=== PATIENT | male | born 1950 | race Caucasian/White ===

== ENCOUNTER 2023-01-30 15:38 | Emergency (ER) | payer MEDICARE, SELFPAY ==
[2023-01-30 15:53] VITALS: BP 132/80; PULSE 76; RESP 16; TEMP 36.6; O2SAT 97
--- NOTE | 2023-01-30 16:27 | ED.URI ---
HPI - URI/Sore Throat General Chief Complaint: Upper Respiratory Infection Stated Complaint: Sinus Pain Time Seen by Provider: 01/30/23 16:27 Source: patient and RN notes reviewed Mode of arrival: ambulatory Limitations: no limitations History of Present Illness HPI Narrative: 72-year-old male presents concern for 2 day history of nasal congestion. He reports runny nose and postnasal drainage. Reports he ?gets this every year?. Reports he was around people who were ill at a on Monday. He denies taking any blea-pqr-zcdubeo medications for his symptoms MD elicited complaint: nasal congestion Related Data Home Medications Medication Instructions Recorded Confirmed duloxetine 30 mg capsule,delayed mg PO 01/30/23 release furosemide 40 mg tablet mg 01/30/23 methocarbamol 500 mg tablet mg 01/30/23 potassium chloride 20 mEq meq PO 01/30/23 tablet,extended release Allergies Allergy/AdvReac Type Severity Reaction Status Date / Time Penicillins Allergy Severe Swelling, Verified 03/27/17 10:21 Rash, SOB Review of Systems Review of Systems: CONSTITUTIONAL: Denies malaise, chills, sweats, or fever. EYES: Denies visual changes, redness, or discharge. ENT: Reports rhinorrhea, congestion denies sinus pain, otalgia and sore throat. CARDIOVASCULAR: Denies chest pain, palpitations, or edema. RESPIRATORY: Reports occasional cough. Denies dyspnea. GASTROINTESTINAL: Denies abdominal pain, nausea, vomiting, diarrhea SKIN: Denies rash or itching. MUSCULOSKELETAL: Denies myalgia. NEUROLOGIC: Denies headache. All systems reviewed & are unremarkable except as noted in HPI and below PMFSH Comments At time of signature, agree with nursing past medical, surgical, social and family history. There is no relevant family history pertinent to the presenting complaint Exam Narrative: GENERAL: Well-appearing, well-nourished, and in no acute distress. HEAD: Normocephalic EYES: PERRLA, conjunctivae clear ENT: Nares clear, turbinates edematous and erythematous, clear discharge. Mucous membranes moist. TM pearly cheng with dull light reflex bilaterally; no tragal tenderness. Oropharynx not erythematous without lesions. Tonsils not enlarged and without exudate, no drooling, no hoarseness, no trismus, uvula midline. NECK: Supple. No lymphadenopathy CHEST: Clear to auscultation, breath sounds equal. No wheezing, rhonchi, rales, or stridor. No respiratory distress, speaks in full sentences. HEART: Regular rate and rhythm. No murmur heard. SKIN: Warm, dry, no rash. NEURO: Alert and oriented x3. PSYCH: Normal mood and affect Course Course Emergency Course: Patient is aware of diagnosis, understands and agrees to treatment plan. Anticipatory guidance given. Patient agrees to follow-up as directed and is aware of reasons to seek care at the emergency department. Portions of this record may have been created with voice recognition software Level of Care: Express Care Visit Vital Signs Vital signs: Vital Signs Temperature 97.8 F 01/30/23 15:53 Pulse Rate 76 01/30/23 15:53 Respiratory Rate 16 01/30/23 15:53 Blood Pressure 132/80 01/30/23 15:53 Pulse Oximetry 97 01/30/23 15:53 Oxygen Delivery Room Air 01/30/23 15:53 Temperature 97.8 F 01/30/23 15:53 Pulse Rate 76 01/30/23 15:53 Respiratory Rate 16 01/30/23 15:53 Blood Pressure 132/80 01/30/23 15:53 Pulse Oximetry 97 01/30/23 15:53 Oxygen Delivery Room Air 01/30/23 15:53 Reviewed. MDM - URI/Sore Throat MDM Narrative Medical decision making narrative: Differential diagnosis considered: [place] virus, strep pharyngitis, allergic rhinitis, upper respiratory tract infection, sinusitis, rhinosinusitis, nasopharyngitis. viral pharyngitis, otitis media, otitis externa, pneumonia, bronchitis, viral cough syndrome, viral syndrome, and influenza. Exam findings show no acute concerns or changes; patient is non-toxic appearing and i
== END 2023-01-30 16:36 | disposition home or self-care (01) ==
PROVIDERS: Emergency Provider Nurse Practitioner; PCP Internal Medicine
DX: J06.9 Acute upper respiratory infection, unspecified (principal); I10 Essential (primary) hypertension
CPT/HCPCS: 99213; G0463

== ENCOUNTER 2025-03-02 08:23 | Emergency (ER) | payer MEDICARE, SELFPAY ==
--- OUTSIDE RECORDS SUMMARY | 2018-08-24 02:56 | XMS_ITS | Continuity of Care Document ---
Author Organization [facility] Address [address] [place] [address] Phone Care Team Providers Care Legal Researcher Name Role Phone Rima Garcia MD Unavailable Unavailable Allergies, Adverse Reactions, Alerts Substance Reaction Status Criticality PENICILLIN Rash Active No Information Medications Medication Instructions Dosage Effective Dates (start - stop) Status Comments Ventolin HFA 90 mcg/actuation aerosol inhaler inhale 2 puff by inhalation route every 4 - 6 hours as needed 180 MCG - Active Procedures Procedure Date PNEUMOCOCCAL VACCINE TDAP VACCINE >7 IM Admin pneumococcal vaccine Admin Inj Vaccine PNEUMOCOCCAL VACCINE Admin Each Add'l Vaccine TDAP VACCINE >7 IM PF Pre/Post Bronchodlator Exhaled Nitric Oxide Sarai Mouth piece Albuterol comp unit Perc Test New (Level 4) OFFICE/OUTPATIENT VISIT Advance Directives Directive Yes / No Effective Date File Name No Information Encounters Encounter Description Practice Location Reason(s) For Visit Diagnoses Date Provider Providers Copied on Encounter [facility], [address] [place] [address], [id number], tel:[phone] [facility] No Information 9 Radha Abarca. [address] [place] [address], [id number] , . tel: [phone] [facility], [address] [place] [address], [id number], tel:[phone] [facility] No Information 9 Radha Abarca. [address] [place] [address], [address], [id number] , . tel:[phone] [facility], [address] [place] [address], [id number], tel:[phone] [facility] No Information 9 Radha Abarca. [address] [place] [address], [place], [place], [id number] , . tel:[phone] Referring Provider: Rima Garcia, [address] [place] [address], [place], [place], [address] [place] [address] . tel:[phone] New (Level 4) OFFICE/OUTPA TIENT VISIT [facility], [address] [place] [address], [id number], tel:[phone] [facility] Chronic sinusitis, hypogammaglobu linemia (chief complaint) Hypogammaglob ulinemiaChron ic sinusitis, unspecifiedCh ronic rhinitisCough Allergy status to PCNAdverse effect of drug, initial encounter 9 Radha Rima. [address] [place] [address], [place] [address], [place], [place], [address] [place] [address] , . tel:[phone] Referring Provider: Rima Garcia, [address] [place] [address], [place], [place], [address] [place] [address] . tel:[phone] Family History Family Member Type Diagnosis Age At Onset No Information Immunizations Vaccine Date Status Comments Tdap administered Source: New Imm unization Record Pneumococcal polysaccharide PPV23 administered Source: New Immuniza tion Record Payers Payer name Insurance type Covered green party ID Authoriza tion(s) [employer] [id number] [employer] [id number] Social History Type Description Quantity Date Captured Comments Alcohol Use Details Unknown Caffeine Use Details Unknown Tobacco Use Status No Information Smoking Status No Information Sex Male Chief Complaint And Reason For Visit No Information Reason For Referral Reason For Referral No Information Plan Of Treatment Date Type Action Status Future Order: Lab Order CBC W/DI FF ([id number]), Ordered on: Ordered Future Order: Lab Order *[id number] L ymphocyte Subset Panel 6, W/CD45RA /CD45RO ([id number]), Ordered on: Ordered Future Order: Lab Order IgG / Ig A / IgM TOTAL ([id number]), Ordered on: Ordered Future Order: Lab Order IMMUNOGL OBULIN G, SUBCLASSES PANEL ([id number]), Ordered on: Ordered Future Order: Lab Order DIPTHERI A ANTITOXOID ANTIBODY ([id number]), Ordered on: Ordered Future Order: Lab Order STREPTOC OCCUS PNEUMONIAE IgG (23 SEROTYPES), MAID ([id number]), Ordered on: Ordered Future Order: Lab Order B-Cell M jose And Naive Panel ([id number]), Ordered on: Ordered Future Order: Lab Order Mitogen & Antigen-Induced Lymphocyte Proliferation Panel ([id number]), Ordered on: Ordered History Of Present Illness Encounter Date Complaint History Of Prese nt Illness Chronic sinusitis, hypogammaglob ulinemia He is referred today for chronic sinusitis and hypogammaglobulinemia. He is referred by Dr. Tabares. Immune studies due to recurrent sinusitis showed a decreased IgG of 475. He has had 2 sinus surgeries, one in 07/2016 and most recently in 04/2018. Sinus surgery in 04/2018 for septal deviation and chronic sinusitis (septoplasty and BL inferior turbinate reductions).In 05/2018, he completed a course of nebulized cipro and budesonide. 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 He currently has otitis, for which he is on his 2nd round of azithromycin. He was admitted for pneumonia about 3-4 years ago. He has also had recurrent conjunctivitis. Sinus infections tends to start with colds. He has a h/o lymphoma and has been on chemotherapy. Recurrent sinusitis initially seemed to be secondary to chemotherapy, but then infections continued after he stopped maintenance chemotherapy.He was on doxycycline in July, followed by nebulized cipro x30 days after symptoms of sinusitis persisted.He has started to have marked coughing spells. Spells start at rest and he is dx with bronchitis. He was seen in the ER for this once. He has not had asthma in the past. He had a rash with the first dose of PCN as a teenager. He states he had a derivative of PCN in his 20's and had uncontrollable shaking.PMH: Chronic sinusitis, h/o lymphoma, h/o agent orange exposureSurgeries: Sinus surgery x2, prostate surgery, tonsillectomyDA: PCN - rash FH: No immune deficiency. Social: There is a bird at home, who is new. 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 He is . He used to smoke, but quit about 5 years ago. Functional Status Date Functional Assessmen t No Information Instructions Date Instruction Additional Infor mation No Information Assessments Type Assessment Date No Information Patient Care Teams Name Effective Dates (start - stop) Status Members No Information
--- OUTSIDE RECORDS SUMMARY | 2025-03-02 08:27 | XMS_ITS | Encounter Summary ---
Author Organization [facility] Address [address] [facility] [address] [place] [address] Phone Care Team Providers Care Composition Tile Layer Name Role Phone Scot Pritchard MD Primary Care Provider [phone] Mulu Bower MD Primary Care Provider Paulino Tate MD Primary Care Provider + Dg Shaw MD Unavailable [phone] Sendy Shrestha MD Unavailable + [phone] Jea Laura MD Unavailable [phone] Encounter Details Date Type Department Care Team (Late st Contact Info) Description 05/04/2017 Orders Only [facility] ProviderOvidio MD [address] [place] [address] Social History Tobacco Use Types Packs/Day Years Used Date Smoking Tobacco: Former Smokeless Tobacco: Never Alcohol Use Standard Drinks/Week Comments Yes 0 (1 standard drink = 0.6 oz pur e alcohol) Sex and Gender Information Value Date Recorded Sex Assigned at Not on file Legal Sex Male 5: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 us Historical Provider LAB BLOOD ORDERABLES Rosie l Result documented in this encounter Visit Diagnoses Not on filedocumented in this encounter Additional Health Concerns Infection Onset Date Last Indicated Resolved Time MRSA Comment:Germ watcher auto flagging. Specimen: NASAL Site: 05/10/15 Nasal Swab MRSA+ 2 negative nares in 2017, no current open areas on skin. Flag removal criteria met 05/11/2015 05/11/2015 04/18/19 10:06 AM SENIOR RESEARCH ENGINEER COVID19 Comment:06/12/2020 IP Review- Result in Media tab as patient image as being initially positive 05/22/20. Patient is COVID recovered. Flora Wright RN Patient has documented SpO2 < 94% which required supplemental oxygen. Based on a COVID-19 testing date of 05/21/20 plus the need for supplemental oxygen this patient is first eligible for COVID: Recovered evaluation on 06/11/20. Harjit Tobar, TALA 05/20/2020 06/12/202006/12 7:29 PM CDT COVID: Recovered Comment:Patient initially positive 05/22/20. Results in media tab under patient image. Flora Wright RN 06/12/2020 06/12/2020 09/21/2020 3:05 AM C DT COVID: Suspected 05/15/2021 05/15/2021 05/15/2021 5:03 PM SENIOR RESEARCH ENGINEER COVID: Suspected 09/09/2021 09/09/2021 09/09/2021 6:07 PM CDT COVID: Suspected 2022 2022 2022 2:48 AM SENIOR RESEARCH ENGINEER COVID19 2022 2022 02/26/2022 3:05 AM SENIOR RESEARCH ENGINEER COVID: Recovered Comment:Added based on recent COVID infection. 02/26/2022 03/11/2022 05/27/2022 3:05 AM C DT COVID: Suspected 11/24/2023 11/24/2023 11/24/2023 12:02 PM CDT documented as of this encounter Care Teams Composition Tile Layer Relationship Specialty Start Date End Date Scot Pritchard MD PCP - General 06/03/16 05/01/19 Mulu Bower MD PCP - General Internal Medicine 05/02/19 05/19/19 Paulino Tate MD [address] [place] [address] PCP - General Internal Medicine 05/20/19 Dg Shaw MD [address] [facility] [address] [place] [address] Medical Oncologist/Customer Service And Sales Consultant Medical Oncology 05/05/20 Sendy Shrestha MD [address] [facility] [address] [place] [address] Consulting Physician Cardiology 05/29/20 [place] [address] [facility] [address] [place] [address] Consulting Physician Urology 07/19/22 documented as of this encounter
--- OUTSIDE RECORDS SUMMARY | 2025-03-02 08:27 | XMS_ITS | Encounter Summary ---
Author Organization [facility] Address [address] [facility] [address] [place] [address] Phone Care Team Providers Care Autocad Draftsman Name Role Phone Scot Pritchard MD Primary Care Provider Mulu Bower MD Primary Care Provider Paulino Tate MD Primary Care Provider + Dg Shaw MD Unavailable [phone] Sendy Shrestha MD Unavailable + [phone] Jae Laura MD Unavailable [phone] Encounter Details Date Type Department Care Team (Late st Contact Info) Description 02/11/2019 Telephone [facility] ([facility]) - [facility] Medicine ENT [address] [facility] [address] [place] [address] [place] [id number] Huong Lindsay Social History Tobacco Use Types Packs/Day Years Used Date Smoking Tobacco: Former Cigarettes 0.8 30 0 08/24/1983 - 08/23/2013 Smokeless Tobacco: Never Alcohol Use Standard Drinks/Week Comments Yes 0 (1 standard drink = 0.6 oz pur e alcohol) 2-3 per week PHQ-2 Answer Date Recorded PHQ-2 Score 0 11/22/2018 Sex and Gender Information Value Date Recorded Sex Assigned at Not on file 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 Patient is COVID recovered. Flora Wright RN Patient has documented SpO2 < 94% which required supplemental oxygen. Based on a COVID-19 testing date of 05/21/20 plus the need for supplemental oxygen this patient is first eligible for COVID: Recovered evaluation on 06/11/20. TALA Parker 05/20/2020 06/12/202006/12 7:29 PM CDT COVID: Recovered Comment:Patient initially positive 05/22/20. Results in media tab under patient image. Flora Wright RN 06/12/2020 06/12/2020 09/21/2020 3:05 AM C DT COVID: Suspected 05/15/2021 05/15/2021 05/15/2021 5:03 PM PIG FARM MANAGER COVID: Suspected 09/09/2021 09/09/2021 09/09/2021 6:07 PM CDT COVID: Suspected 2022 2022 2022 2:48 AM PIG FARM MANAGER COVID19 2022 2022 02/26/2022 3:05 AM PIG FARM MANAGER COVID: Recovered Comment:Added based on recent COVID infection. 02/26/2022 03/11/2022 05/27/2022 3:05 AM C DT COVID: Suspected 11/24/2023 11/24/2023 11/24/2023 12:02 PM CDT documented as of this encounter Care Teams Autocad Draftsman Relationship Specialty Start Date End Date Scot Pritchard MD PCP - General 06/03/16 05/01/19 Mulu Bower MD PCP - General Internal Medicine 05/02/19 05/19/19 Paulino Tate MD [address] [facility] [place] [address] PCP - General Internal Medicine 05/20/19 Dg Shaw MD [address] [address] Medical Oncologist/Window Glazier Helper Medical Oncology 05/05/20 Sendy Shrestha MD [address] [facility] [address] [place] [address] Consulting Physician Cardiology 05/29/[address] [place] [address] [facility] [address] [place] [address] Consulting Physician Urology 07/19/22 documented as of this encounter
--- OUTSIDE RECORDS SUMMARY | 2025-03-02 08:27 | XMS_ITS | Clinical Summary ---
Author Organization [facility] Address [address] [place] [address] Phone Care Team Providers Care Certified Rehabilitation Counselor Name Role Phone Scot Pritchard MD Primary Care Provider [phone] Social History Tobacco Use Types Packs/Day Years Used Date Smoking Tobacco: Never Assessed Sex and Gender Information Value Date Recorded Sex Assigned at Not on file Legal Sex Male 12:12 AM CDT Gender Identity Not on file Sexual Orientation Not on file Last Filed Vital Signs Vital Sign Reading Time Taken Comments Blood Pressure 120/70 09/29/2016 7:00 AM CDT Pulse 58 09/29/2016 7:00 AM CDT Temperature - - Respiratory Rate - - Oxygen Saturation - - Inhaled Oxygen Concentration - - Weight - - Height - - Body Mass Index - - Plan of Treatment Health Maintenance Due Date Last Done Comments Hepatitis C Virus (HCV) Screening 1950 TdaP Immunization 1950 Pneumococcal Immunization (5 0+ years) (1 of 1 - PCV) 1999 Zoster Immunization (1 of 2) 1999 Respiratory Syncytial Virus (RSV) Immunization (Adult) (1 - 1-dose 75+ series) 02/17/2024 Influenza Immunization (#1) 2024 SARS-COV-2 Immunization ( - 2024- season) 2024 Hepatitis B Immunization Aged Out No longer eligible based on patient's age to complete this topic Human Papillomavirus (HPV) Immunization (No Doses Required) Completed Meningococcal Immunization (ACWY) Aged Out No longer eligible based on patient's age to complete this topic Rotavirus Immunization Aged Out No lo nger eligible based on patient's age to complete this topic Care Teams Certified Rehabilitation Counselor Relationship Specialty Start Date End Date Scot Pritchard MD [address] [facility] [address] [place] [id number] PCP - General Internal Medicine 09/27/16
--- OUTSIDE RECORDS SUMMARY | 2025-03-02 08:27 | XMS_ITS | Clinical Summary ---
Author Organization [facility] Address [address] [place] [address] Care Team Providers Care Grey Percher Name Role Phone Paulino Tate MD Primary Care Provider + Dg Shaw MD Unavailable [phone] Sendy Shrestha MD Unavailable [phone] Jae Laura MD Unavailable [phone] Allergies Active Allergy Reactions Criticality Noted Date Comments Ciprofloxacin Other (See comments) Low 11/22/2018 Severe muscle cramping Erythromycin Itching,Blisters High 05/09/2018 Ointment Penicillins Swelling,Rash,Other (See comments) Medium Also gave patient uncontrollable shaking. Penicillin allergy history form completed, moderate risk Medications ascorbic acid (vitamin C) 1,000 mg tablet Take 1 tablet (1,000 mg total) by mouth 2 (two) times a day Active cholecalciferol , vitamin D3, (VITAMIN D3 ORAL)Indication s:supplement Take 5,000 mcg by mouth every morning Active potassium chloride ER 20 mEq CR tablet Take 1 tablet (20 mEq total) by mouth daily 07/30/2020 Active furosemide (LASIX) 40 mg tablet Take 1 tablet (40 mg total) by mouth daily 10/10/2020 Active zinc 50 mg tablet Take 50 mg by mouth nightly Active metoprolol XL (TOPROL-XL) 25 mg extended release tablet Take 1 tablet (25 mg total) by mouth daily 11/17/2020 Active aspirin 81 mg capsule Take 81 mg by mouth daily Active cetirizine (ZyrTEC) 5 mg tablet Take 1 tablet (5 mg total) by mouth daily Active DULoxetine DR (CYMBALTA) 60 mg capsule Take 1 capsule (60 mg total) by mouth daily 90 capsule 2 07/03/2024 Active famotidine (PEPCID) 40 mg tablet Take 1 tablet (40 mg total) by mouth daily 30 tablet 6 10/16/2024 Active doxycycline (VIBRAMYCIN) 100 mg capsule Take 1 tablet/capsu le (100 mg total) by mouth 2 (two) times a day 20 capsule 12/07/2024 Active Active Problems Problem Noted Date Diagnosed Date History of colonic polyps 05/10/2024 COPD (chronic obstructive pulmonary disease) 07/2023 Encounter for screening for lung cancer 10/09/19 24 SOB (shortness of breath) 10/04/2023 Breakdown (mechanical) of im planted penile prosthesis, initial encounter 07/18/2022 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 Overview (06/02/2022): Added automatically from request for surgery [id number] Right hydrocele 06/02/2022 Overview (06/02/2022): Added automatically from request for surgery [id number] ASNHL (asymmetrical sensorineural hearing loss) 04/06/2022 Assessment & Plan (05/18/2022 8:37 PM CDT): MRI clear - medically cleared, may proceed with at least right sided hearing aid Assessment & Plan (04/06/2022 10:52 AM SOLIDWORKS DESIGNER): Please proceed with MRI scan Budesonide sinus rinses twice daily, just add ampule to sinus rinse mixture shake and rinse Culture taken today, start new oral antibiotics based on these findings Chronic maxillary sinusitis 03/11/2022 Assessment & Plan (07/11/2022 3:12 PM CDT): Nasal saline spray (Simply saline, [employer] Remedies, [place], [place]) 2 second sprays or 2 squeezes into each nostril while looking down over the sink, do not need to sniff in. Followed by Flonase 2 sprays into each nostril while looking down over the sink, do not sniff in or blow nose after use for at least 30 minutes 1-2 times per day Zpak if needed Assessment & Plan (05/18/2022 10:23 AM CDT): MRI clear - medically cleared, may proceed with at least right sided hearing aid Continue on Pulmicort sinus rinses twice daily Start Zpak daily with food, then start Cefdinir twice daily with a meal Medrol dose pack with a meal Pepcid 40 mg at bedtime Assessment & Plan (04/06/2022 10:51 AM SOLIDWORKS DESIGNER): Please proceed with MRI scan Budesonide sinus rinses twice daily, just add ampule to sinus rinse mixture shake and rinse Culture taken today, start new oral antibiotics based on these findings Assessment & Plan (03/11/2022 2:47 PM SOLIDWORKS DESIGNER): Continue Sinus Rinse twice daily Hearing test with [facility] for Sudden hearing loss [facility] [phone] [address] [place] [address] Doxycycline twice daily for [address] sinus in 3-4 weeks, please have face covering completely off face for imaging Sudden right hearing loss 03/11/2022 Assessment & Plan (03/11/2022 2:47 PM SOLIDWORKS DESIGNER): Continue Sinus Rinse twice daily Hearing test with [facility] for Sudden hearing loss [facility] [phone] [address] [place] [address] Doxycycline twice daily for [address] sinus in 3-4 weeks, please have face covering completely off face for imaging Erectile dysfunction 01/06/2022 Urinary urgency 04/15/2021 Hematuria 04/15/2021 Microscopic hematuria 04/15/2021 Overview (04/15/2021): Added automatically from request for surgery [id number] Epididymal cyst 04/15/2021 Overview (04/15/2021): Added automatically from request for surgery [id number] Sensorineural hearing loss (SNHL) of both ears 0 03/26/2021 Assessment & Plan (03/26/2021 11:58 AM SOLIDWORKS DESIGNER): Hearing test - [facility] Impacted cerumen of left ear 03/26/2021 Assessment & Plan (03/26/2021 11:58 AM SOLIDWORKS DESIGNER): Avoid ear cleaning techniques Avoid water to ears Non-seasonal allergic rhinitis due to pollen Assessment & Plan (03/26/2021 11:58 AM SOLIDWORKS DESIGNER): Increase Sinus Rinse and Flonase 2 sprays into each nostril while looking down over the sink, do not sniff in or blow nose after use for at least 30 minutes to twice daily Continue Xyzal every day History of COVID-19 06/12/2020 Assessment & Plan (06/12/2020 9:05 PM CDT): Reportedly COVID positive on 05/22, during [facility] admission 05/22-05/29 >20 days since first positive test: can likely be considered COVID recovered However, given persistent CT findings of viral pna and SOB (but likely due to PE), will keep on COVID precautions for now - Tele w/ pulse ox, supportive care - Will obtain record of first COVID positive test from [facility] Pulmonary embolism 06/12/2020 Assessment & Plan (06/12/2020 10:37 PM CDT): Persistent SOB and SOLIS since OSH discharge on 05/29. CTPA (06/12) shows LLL PE. Likely from hypercoaguable state 2/2 recent COVID-19 BNP and trop wnl Currently on RA s/p 1.5mg/kg Lovenox in ED - Cont Lovenox at 1mg/kg BID, starting tmrw AM - If remains on RA and tolerate lovenox, can transition to Eliquis tmrw - BLE Doppler, TTE PAF (paroxysmal atrial fibrillation) 05/22/2020 Assessment & Plan (06/12/2020 10:36 PM CDT): Not on AC prior - Cont Toprol XL 25mg daily (home med states 50mg, but pt says this dose was reduced to 25mg during recent OSH admission) - Hold home ASA while on Lovenox. (Pt says he takes 81mg daily, instead of 325mg listed under home meds) Assessment & Plan (05/22/2020 10:55 PM CDT): Patient is on metoprolol which was resumed, hold parameters were added. Patient as an appointment on June [address] Shrestha to establish care. Bradycardia 05/22/2020 Assessment & Plan (05/22/2020 10:55 PM CDT): Patient has had heart rates as low as 57 from review of EMR recently. Hold parameters are added to metoprolol. Will continue to monitor on tele as patient is on remdesivir. CONRADO (acute kidney injury) 05/22/2020 Assessment & Plan (05/22/2020 10:56 PM CDT): Likely prerenal due to poor p.o. intake. Baseline creatinine of about 1. Hold nephrotoxins including indapamide. Will gently hydrate. 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 Outpatient follow up with Onc Assessment & Plan (11/22/2018 2:29 PM CDT): Currently in remission.Followed by [facility] Essential tremor 12/04/2014 Overview (06/09/2016): Essential tremor Assessment & Plan (12/13/2018 2:16 PM CDT): Stable at this time Assessment & Plan (08/11/2016 9:15 AM CDT): Patient is doing very well on current medical regimen. Will continue with same treatment and monitor as clinical course dictates. Deep vein thrombosis (DVT) 06/18/2014 Overview (06/09/2016): DVT Assessment & Plan (08/11/2016 9:15 AM CDT): Has completed tx Chronic venous insufficiency 12/05/2012 Overview (06/10/2016): Venous insufficiency Assessment & Plan (08/11/2016 9:17 AM CDT): Has seen Dr SMITH. He had an Us, was told of a venous insufficiency issue, rec stents if no better Polyp of colon 02/03/2005 Overview (06/09/2016): Colonic polyps Carcinoma of prostate 02/05/1996 Overview (06/09/2016): Prostate cancer Assessment & Plan (11/22/2018 2:28 PM CDT): proctectomy in 1995. CISCO Assessment & Plan (08/11/2016 9:19 AM CDT): Will draw psa Encounters Date Type Department Care Team Description 12/06/2024 11:49 PM CDT - 12/07/2024 4:58 AM CDT Emergency [facility] Emergency Department [address] [place] [address] Juan Antonio Alicea MD Puncture wound of left thigh, initial encounter (Primary Dx) Discharge Disposition: Discharge to home or self care 12/06/2024 11:26 PM CDT - 12/06/2024 11:59 PM CDT Hospital Encounter [facility] Emergency, Room R Discharge Disposition: Discharge to home or self care from Last 3 Months Immunizations Immunization Administration Dates Next Due Influenza, Quadrivalent, Verena l Culture-based MDCK, Preservative Free, Antibiotic Free, Intramuscular 01/12/2022 Influenza, Quadrivalent, Hig h Dose, Preservative Free, Intrr 02/02/2021,02/03/2020 Influenza, Quadrivalent, Spl it, Intramuscular 12/04/2014 Influenza, Quadrivalent, Spl it, Preservative Free, Intramuscular 01/03/2018 Influenza, Trivalent, High D ose, Split, Preservative Free, Intramuscular 11/22/2018 Influenza, Trivalent, IM (MDV) 11/12/2014 Influenza, Trivalent, Preser vative Free, Intramuscular 12/19/2014 Influenza, Unspecified 02/02/2021,2018,12/04/2017,12/18(Deferred: Patient Refused),12/07/2012,01/02/2012, 011 Pneumococcal Conjugate PCV 13 12/19/2012 Pneumococcal Polysaccharide PPV23 12/19/2011 Pneumococcal, Unspecified 11/12/2014 Tdap 12/07/2024,04/29/2011 ZOSTER LIVE 02/06/2012,07/12/2011 ZOSTER Recombinant 01/10/2022,09/22/2021 Surgical History Surgery Date Site/Laterality Comments TONSILLECTOMY PENILE PROSTHESIS IMPLANT PROSTATECTOMY UNDESCENDED TESTICLE EXPLORATION ROTATOR CUFF REPAIR Left US GUIDED BIOPSY LYMPH NODE SUPERFICIAL LEFT 08/24/2017 N/A PORTACATH PLACEMENT PORT REMOVAL 03/06/2015 - 03/05/2016 COLONOSCOPY 11/04/2016 - 12/03/2016 FUNCTIONAL ENDOSCOPIC SINUS SURGERY SINUS SURGERY X 3 CYSTOSCOPY 05/04/2022 - 06/03/2022 Medical History Medical History Date Comments Atrial fibrillation (HCC) 2011 Chronic sinusitis ED (erectile dysfunction) Pulmonary embolism 06/2014 after long ca r ride MRSA (methicillin resistant staph aureus) culture positive 2016 nasal. Pt reports Nasal Swab (x3) for MRSA done by his PCP in 2018 was negative. 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 above ankl e down to feet Tinnitus, bilateral with hearing loss History of chemotherapy last in January 2018, per pt Personal history of other me dical treatment 2016 History of infected PORT-A-C ATH Neuropathy Bilateral legs & hands that 2/2 prior chemotherapy and antibiotic: Ciprofloxacin Non Hodgkin's lymphoma (HCC) wit h lung involvement Prostate cancer (HCC) 1995 Arthritis Covid 05/2020 Failure of penile implant Family History Medical History Relation Name Comments Liver cancer Father Pancreatic cancer Mother Non-Hodgkin's Lymphoma Son Relation Name Status Comments Father (Age 85) Mother (Age 66) Son Social History Tobacco Use Types Packs/Day Years Used Date Smoking Tobacco: Former Cigarettes 0.5 45.5 1 969 - 08/23/2013 Smokeless Tobacco: Never Tobacco Cessation:Counseling Given: Not Answered Alcohol Use Standard Drinks/Week Comments Yes 2 (1 standard drink = 0.6 oz pur e alcohol) Social drinker AUDIT-C Answer Date Recorded Q1: How often do you have a drink containing alc ohol? 2-3 times a week 05/17/2021 Q2: How many drinks containi ng alcohol do you have on a typical day when you are drinking? 3 or 4 05/17/2021 Q3: How often do you have si x or more drinks on one occasion? Less than monthly 05/17/2021 PHQ-2 Answer Date Recorded PHQ-2 Total Score (If total score is 3 or more points, staff should administer the PHQ-9) 0 05/26/2020 Personal Safety Answer Date Recorded Have you ever been in or are you currently in a harmful physical or emotional relationship or is someone making you feel afraid or unsafe? Denies 12/06/2024 Sex and Gender Information Value Date Recorded Sex Assigned at Not on file Legal Sex Male 5:00 PM SOLIDWORKS DESIGNER Gender Identity Not on file Sexual Orientation Not on file Last Filed Vital Signs Vital Sign Reading Time Taken Comments Blood Pressure 115/59 12/07/2024 4:45 AM CDT Pulse 66 12/07/2024 4:50 AM CDT Temperature 36.3 C (97.3 F) 12/06/2024 11:51 PM CDT Respiratory Rate 12 12/06/2024 11:51 PM CDT Oxygen Saturation 97% 12/07/2024 4:50 AM CDT Inhaled Oxygen Concentration - - Weight 107 kg (236 lb) 12/06/2024 11:51 PM CDT Height 190.5 cm (6' 3) 12/06/2024 11:51 PM CDT Body Mass Index 29.5 12/06/2024 11:51 PM CDT Plan of Treatment Health Maintenance Due Date Last Done Comments Hepatitis B Screening 1967 Lung Cancer Screening 1999 Pneumococcal vaccine 65+ (3 of 3 - PCV20 or PCV21) 12/18/2016 11/12/2014, 12/19/2012, 12/19/2011 Well Visit 65+ 12/14/2019 12/13/2018 Depression Screening 05/22/2021 05/22/2020, 12/13/2018, 11/22/2018, Additional history exists Fall Risk Assessment 07/20/2023 07/19/2022, 12/13/2018, 11/22/2018, Additional history exists Influenza Vaccine (#1) 2024 , 02/02/2021, 02/02/2021, Additional history exists DTaP/Tdap/Td Vaccine (3 - Td or Tdap) 12/07/2034 12/07/2024, 04/29/2011 Hepatitis C Screening Completed 08/24/2017 Colon Cancer Screening-CT Colonography Discontinued 12/10/2019, 11/10/2016, 09/30/2011 Colon Cancer Screening-Colonoscopy Discontinued 12/10/2019, 11/10/2016, 09/30/2011 Colon Cancer Screening-DNA Stool Discontinued 12/10/2019, 11/10/2016, 09/30/2011 Colon Cancer Screening-FIT Discontinued 12/09, 11/10/2016, 09/30/2011 Colon Cancer Screening-FOBT Discontinued 08/2019, 11/10/2016, 09/30/2011 Colon Cancer Screening-Sigmoidoscopy Discontinued 12/10/2019, 11/10/2016, 09/30/2011 Colorectal Cancer Screening Discontinued Zoster Vaccine Completed 01/10/2022, 09/04, 02/06/2012, Additional history exists Abdominal Aortic Aneurysm (A AA) Screen Completed 10/16/2024, 07/03/2024, 07/19/2023, Additional history exists Medical Devices Implanted Type Area Mill Tender Washing Device Identifier Shelf Expiration Date Model / Serial / Lot Intersect Ent 07680 Propel 4mm 16mm Steroid Release Zip Tie 370 Mcg Mini Implant - [id number] Implanted:Qty: 2 on 04/18/2018 by Grady Tabares MD at [facility] Stent Bilatera l: Sinus Intersect Ent 08/19/2019 [id number] / / [id number] Description:Bilateral ethmoi d sinuses [employer] [employer] Ambicor 12.5mm 18cm Cylinder Pump Inflatable Penoscrotal [id number] - [id number] Implanted:Qty: 1 on 07/18/2022 by Jae Laura MD at [facility] Penis [employer] [id number] 10/01/2023 [id number] / / [id number] Explanted Type Area Mill Tender Washing Device Identifier Shelf Expiration Date Model / Serial / Lot Ams [employer] 3 Piece Penile Prosthesis - Pump, Cylinders, And [place] Explanted:Qty: 1 on 07/18/2022 by Jae Laura MD at [facility] Penis [employer] Procedures Procedure Name Priority Date/Time Associated Diagnosis Comments CTA LOWER EXTREMITY LEFT NOT FOR ISCHEMIA ED 12/07/2024 2:37 AM CDT XR FEMUR LEFT 2 OR MORE VIEWS ED 12/07/2024 2:08 AM CDT EGFR STAT 12/07/2024 12:03 AM CDT DIFFERENTIAL AUTO STAT 12/07/2024 12: 03 AM CDT ANTIBODY SCREEN STAT 12/07/2024 12:03 AM CDT ABO/RH STAT 12/07/2024 12:03 AM CDT TYPE AND SCREEN STAT 12/07/2024 12:03 AM CDT CBC WITH AUTO DIFFERENTIAL STAT 12/07/2024 12:03 AM CDT COMPREHENSIVE METABOLIC PANEL STAT 12/07/2024 12:[address] CHEST ABDOMEN PELVIS W CONTRAST Schedule Routine, Read Routine (OP Routine) 10/16/2024 9:35 AM CDT Follicular lymphoma of lymph nodes of multiple sites (HCC) COLONOSCOPY 12/10/2019 10:10 AM CDT HEPATITIS C ANTIBODY Routine 08/24/2017 11:35 AM CDT Other type of follicular lymphoma of lymph nodes of multiple regions (HCC) from Last 3 Months or Most Recently Relevant to Health Maintenance Results * CTA Lower Extremity Left (12/07/2024 2:37 AM CDT) Anatomical Region Laterality Modality Lower Extremities Left Computed Tomog tai 12/07/2024 2:51 AM CDT Narrative 12/07/2024 3:15 AM CDT EXAM DESCRIPTION: CTA LOWER EXTREMITY LEFT NOT FOR ISCHEMIA REASON FOR STUDY: puncture wound pt was drinking and playing games, pt fell back and landed on his butt. Pt fell onto either plastic, glass, or concrete block but unsure. Pt has a puncture wound to left buttock . Pt denies hitting head and no loc. Pt takes asprin daily. Pt has hx of non Hodgkin lymphoma.pt is alert and oriented x 4 TECHNIQUE: CTA of the left lower extremity was performed with intravenous contrast using helical scanning technique. Arterial images were obtained. Images reviewed with soft tissue and bone windows. Reconstructed coronal and sagittal MPR images reviewed. All images stored on PACS. 3D MIP images rendered on scanning unit and reviewed at time of interpretation. Automated exposure control was used as a dose optimization technique for this examination. CONTRAST TYPE/DOSE: 100mL of IOVERSOL 350 MG IODINE/ML INTRAVENOUS SYRINGE injected via intravenous COMPARISON: Relevant images from prior CT of the chest, abdomen and pelvis of October 16, 2024. Plain films of the left femur of December 07, 2024. FINDINGS: KIDNEYS/URINARY TRACT: There is a stable 4 cm cyst seen in the left kidney. No visualized renal or ureteral stones. There is no hydronephrosis or hydroureter. Visualized urinary bladder is unremarkable. GI: There is no significant small bowel dilation or visible thickening. There are colonic diverticula without evidence of diverticulitis. PERITONEUM/MESENTERY: No ascites or free air. LYMPH NODES: There are no enlarged lymph nodes seen by CT size criteria. RETROPERITONEUM: No additional retroperitoneal abnormalities. REPRODUCTIVE: The patient is status post prostatectomy. Penile implant is seen in place. MUSCULOSKELETAL: Multilevel degenerative changes are present in the spine. No acute bony abnormalities are seen. There is grade 1 spondylolisthesis secondary to bilateral chronic appearing spondylolysis at L5 on S1. the visualized bony pelvis is intact. There is mild left hip joint space narrowing and tiny marginal osteophytes seen of the acetabulum. There is mild enthesopathy seen of the greater trochanter. The femur is intact. The patellofemoral articulation is congruent. There is mild narrowing of the medial compartment of the knee with sclerosis of the medial tibial plateau, and small marginal osteophytes of the medial compartment. There is mild spurring of the tibial spines. The tibia and fibula are intact. The ankle is in normal alignment. The talus, calcaneus, navicular, cuboid, cuneiforms, metatarsals and phalanges are intact. There is cjuj-vh-bouwlxwy degenerative change of the midfoot articulations. In the inferomedial aspect of the gluteus eloy, there is a tiny punctate focus of gas, likely representing the site of the patient's puncture wound (series 4, image 200. Slightly more inferiorly and laterally, there is a focus of high density (Hounsfield units in the mid 50s) measuring 2.4 x 1.6 x 0.9 cm, consistent with a tiny subcutaneous hematoma. There is mild surrounding stranding in the adjacent subcutaneous fat, consistent with edema or hemorrhage. There is no evidence of active extravasation. VASCULATURE: There is mild atherosclerosis of the aorta and its pelvic branches. There are multiple surgical clips in the left inguinal region and along the left external iliac artery. The aorta and left hemipelvis vasculature appear patent. The common, superficial and deep femoral arteries are patent. The popliteal artery, tibiofibular trunk, anterior tibial, posterior tibial and peroneal arteries are patent with three-vessel runoff to the left foot. No dissection, aneurysm, intramural hematoma, rupture, hemodynamically significant stenosis or penetrating atherosclerotic ulcer. There is no extravasation of contrast seen to suggest an arterial injury. OTHER: No other abnormality. IMPRESSION: 1. No evidence of arterial injury in the left lower extremity. 2. Puncture wound in the inferomedial aspect of the left gluteus eloy with a tiny subcutaneous hematoma and mild surrounding edema or hemorrhage. No evidence of active extravasation. 3. No acute osseous abnormality of the left lower extremity. 4. Degenerative change of the left hip, left knee and left midfoot. 5. Grade 1 spondylolisthesis secondary to bilateral chronic appearing spondylolysis at L5 on S1. 6. Status post prostatectomy. 7. Penile implant in place. 8. Colonic diverticulosis without evidence of diverticulitis. THIS IS AN ELECTRONICALLY VERIFIED FINAL REPORT 12/07/2024 3:15 AM - Electronically signed by Skye Cheema M.D. SN: SN Report ID: [id number] Reading Location: [id number] Procedure Note Skye Cheema MD - 12/07/2024 EXAM DESCRIPTION: CTA LOWER EXTREMITY LEFT NOT FOR ISCHEMIA REASON FOR STUDY: puncture wound pt was drinking and playing games, pt fell back and landed on his butt. Pt fell onto either plastic, glass, or concrete block but unsure. Pt has a puncture wound to left buttock . Pt denies hitting head and no loc. Pttakes asprin daily. Pt has hx of non Hodgkin lymphoma.pt is alert and orientedx 4 TECHNIQUE: CTA of the left lower extremity was performed withintravenous contrast using helical scanning technique. Arterial images were obtained. Images reviewed with soft tissue and bone windows. Reconstructed coronaland sagittal MPR images reviewed. All images stored on PACS. 3D MIP images rendered on scanning unit and reviewed at time of interpretation.Automated exposure control was used as a dose optimization technique for this examination. CONTRAST TYPE/DOSE: 100mL of IOVERSOL 350 MG IODINE/ML INTRAVENOUS SYRINGE injected via intravenous COMPARISON: Relevant images from prior CT of the chest, abdomen and pelvisof October 16, 2024. Plain films of the left femur of December 07, 2024. FINDINGS: KIDNEYS/URINARY TRACT: There is a stable 4 cm cyst seen in the leftkidney. No visualized renal or ureteral stones. There is no hydronephrosis or hydroureter. Visualized urinary bladder is unremarkable. GI: There is no significant small bowel dilation or visible thickening. There are colonic diverticula without evidence of diverticulitis. PERITONEUM/MESENTERY: No ascites or free air. LYMPH NODES: There are no enlarged lymph nodes seen by CT size criteria. RETROPERITONEUM: No additional retroperitoneal abnormalities. REPRODUCTIVE: The patient is status post prostatectomy. Penile implantis seen in place. MUSCULOSKELETAL: Multilevel degenerative changes are present in thespine. No acute bony abnormalities are seen. There is grade 1 spondylolisthesis secondary to bilateral chronic appearing spondylolysis at L5 on S1. the visualized bony pelvis is intact. There is mild left hip joint space narrowing and tiny marginal osteophytes seen of the acetabulum. There ismild enthesopathy seen of the greater trochanter. The femur is intact. The patellofemoral articulation is congruent. There is mild narrowing of the medial compartment of the knee with sclerosis of the medial tibialplateau, and small marginal osteophytes of the medial compartment. There is mild spurring of the tibial spines. The tibia and fibula are intact. Theankle is in normal alignment. The talus, calcaneus, navicular, cuboid, cuneiforms, metatarsals and phalanges are intact. There is isbe-wt-qzprrqwkeeyklctvxhfh change of the midfoot articulations. In the inferomedial aspect of the gluteus eloy, there is a tinypunctate focus of gas, likely representing the site of the patient's puncture wound (series 4, image 200. Slightly more inferiorly and laterally, there is a focus of high density (Hounsfield units in the mid 50s) measuring 2.4 x1.6 x 0.9 cm, consistent with a tiny subcutaneous hematoma. There is mild surrounding stranding in the adjacent subcutaneous fat, consistent withedema or hemorrhage. There is no evidence of active extravasation. VASCULATURE: There is mild atherosclerosis of the aorta and its pelvic branches. There are multiple surgical clips in the left inguinal regionand along the left external iliac artery. The aorta and left hemipelvis vasculature appear patent. The common, superficial and deep femoralarteries are patent. The popliteal artery, tibiofibular trunk, anterior tibial, posterior tibial and peroneal arteries are patent with three-vessel runoffto the left foot. No dissection, aneurysm, intramural hematoma, rupture, hemodynamically significant stenosis or penetrating atherosclerotic ulcer. There is no extravasation of contrast seen to suggest an arterial injury. OTHER: No other abnormality. IMPRESSION: 1. No evidence of arterial injury in the left lower extremity. 2. Puncture wound in the inferomedial aspect of the left gluteus eloy with a tiny subcutaneous hematoma and mild surrounding edema orhemorrhage. No evidence of active extravasation. 3. No acute osseous abnormality of the left lower extremity. 4. Degenerative change of the left hip, left knee and left midfoot. 5. Grade 1 spondylolisthesis secondary to bilateral chronic appearing spondylolysis at L5 on S1. 6. Status post prostatectomy. 7. Penile implant in place. 8. Colonic diverticulosis without evidence of diverticulitis. THIS IS AN ELECTRONICALLY VERIFIED FINAL REPORT 12/07/2024 3:15 AM - Electronically signed by Skye Cheema M.D. SN: SN Report ID: [id number] Reading Location: [id number] Juan Antonio Alicea MD IMG CT PROCEDURES Final Resu lt * XR Femur Left 2 or More Views (12/07/2024 2:08 AM CDT) Anatomical Region Laterality Modality Lower Extremities, Thigh, Femur Left Computed Radiography 12/07/2024 2:13 AM CDT Narrative 12/07/2024 2:15 AM CDT EXAM DESCRIPTION: XR FEMUR LEFT 2 OR MORE VIEWS REASON FOR STUDY: pain Pt arrived via [facility]. Per EMS Pt was drinking and playing games, pt fell back and landed on his butt Tonight. Pt Fell onto either plastic, glass, or concrete block but unsure. Pt has a puncture wound to left buttock. Hx of Non Hodgkin's Lymphoma TECHNIQUE: AP and lateral radiographic views of the left femur . COMPARISON: None. FINDINGS: BONES: There is no cortical discontinuity or trabecular irregularity to suggest fracture. The bones are in normal alignment. SOFT TISSUES: The soft tissues are unremarkable. IMPRESSION: No acute osseous abnormality. THIS IS AN ELECTRONICALLY VERIFIED FINAL REPORT 12/07/2024 2:15 AM - Electronically signed by Skye Cheema M.D. SN: SN Report ID: [id number] Reading Location: [id number] Procedure Note Skye Cheema MD - 12/07/2024 EXAM DESCRIPTION: XR FEMUR LEFT 2 OR MORE VIEWS REASON FOR STUDY: pain Pt arrived via [facility] EMS. Per EMS Pt was drinking and playing games, ptfell back and landed on his butt Tonight. Pt Fell onto either plastic, glass,or concrete block but unsure. Pt has a puncture wound to left buttock.Hx of Non Hodgkin's Lymphoma TECHNIQUE: AP and lateral radiographic views of the left femur . COMPARISON: None. FINDINGS: BONES: There is no cortical discontinuity or trabecular irregularity to suggest fracture. The bones are in normal alignment. SOFT TISSUES: The soft tissues are unremarkable. IMPRESSION: No acute osseous abnormality. THIS IS AN ELECTRONICALLY VERIFIED FINAL REPORT 12/07/2024 2:15 AM - Electronically signed by Skye Cheema M.D. SN: SN Report ID: [id number] Reading Location: [place] [address] Juan Antonio Alicea MD IMG XR PROCEDURES Final Resu lt * eGFR (12/07/2024 12:03 AM CDT) eGFR 68 >=60 mL/min/1. 73 m2 Comment: Interpretive Data Reference Interval Normal >/= 90 mL/min/1.73m2 Mildly decreased* 60 - 89 mL/min/1.73m2 Mildly to moderately decreased 45 - 59 mL/min/1.73m2 Moderately to severely decreased 30 - 44 mL/min/1.73m2 Severely decreased 15 - 29 mL/min/1.73m2 Kidney Failure < 15 mL/min/1.73m2 *Relative to young adult level Estimated glomerular filtration rate is determined by the 2020 CKD-EPI equation recommended by the National Kidney [employer] (A Unifying Approach to GFR Estimation: Recommendations of the NKF-ASK Task Force on Reassessing the Inclusion of Race in Diagnosing Kidney Disease, JASN 202). The CKD-EPI equation should not be used for patients with unstable renal function and has not been validated in children and those over 70. Current interpretive data was last reviewed 2021. Blood 12/07/2024 12:0 3 AM CDT 12/07/2024 12:10 AM CDT us Juan Antonio Alicea MD LAB BLOOD ORDERABLES Final R esult [facility] Department [place] [address] * Differential, auto (12/07/2024 12:03 AM CDT) Neutrophil abs 3.30 1.50 - 6.50 K/cumm Imm gran abs 0.02 0.00 - 0.10 K/cumm [facility] ([place]) Lymphocyte abs 1.65 0.80 - 3.30 K/cumm [facility] ([place]) Monocyte abs 0.52 0.20 - 0.80 K/cumm [facility] ([place]) Eosinophil abs 0.24 0.00 - 0.50 K/cumm [facility] ([place]) Basophil abs 0.02 0.00 - 0.10 K/cumm [facility] ([place]) Neutrophil pct 57.5 % [facility] ([place]) Comment: Interpretive Data Percent cell count reference ranges are not reported, since discordance with absolute values may lead to misinterpretation of CBC data. Current Interpretive Data was last revised on 2017. Imm gran pct 0.3 % [facility] ([place]) Comment: Interpretive Data Percent cell count reference ranges are not reported, since discordance with absolute values may lead to misinterpretation of CBC data. Current Interpretive Data was last revised on 2017. Lymphocyte pct 28.7 % [facility] ([place]) Comment: Interpretive Data Percent cell count reference ranges are not reported, since discordance with absolute values may lead to misinterpretation of CBC data. Current Interpretive Data was last revised on 2017. Monocyte pct 9.0 % [facility] ([place]) Comment: Interpretive Data Percent cell count reference ranges are not reported, since discordance with absolute values may lead to misinterpretation of CBC data. Current Interpretive Data was last revised on 2017. Eosinophil pct 4.2 % [facility] ([place]) Comment: Interpretive Data Percent cell count reference ranges are not reported, since discordance with absolute values may lead to misinterpretation of CBC data. Current Interpretive Data was last revised on 2017. Basophil pct 0.3 % [facility] ([place]) Comment: Interpretive Data Percent cell count reference ranges are not reported, since discordance with absolute values may lead to misinterpretation of CBC data. Current Interpretive Data was last revised on 2017. Blood 12/07/2024 12:0 3 AM CDT 12/07/2024 12:10 AM CDT Juan Antonio Alicea MD LAB BLOOD ORDERABLES Final R esult [facility] ([place] Department [place] [address] * (ABNORMAL) CBC with auto differential (12/07/2024 12:03 AM CDT) WBC 5.75 3.80 - 9.90 K/cumm Hgb 15.2 13.0 - 17.5 g/dL [facility] Hct 47.2 38.9 - 50.3 % [facility] [place] Plt 140(L) 150 - 400 K/cumm [facility] [place] MPV 11.1 9.1 - 12.3 fL [facility] [place] RBC 5.40 4.30 - 5.80 M/cumm [facility] [place] MCV 87.4 81.3 - 96.4 fL [facility] [place] MCH 28.1 27.1 - 33.3 pg [facility] [place] MCHC 32.2(L) 32.3 - 35.7 g/dL [facility] [place] RDW CV 12.9 11.1 - 14.9 % [facility] [place] RDW SD 41.0 35.7 - 48.1 fL [facility] [place] NRBC abs 0.00 0.00 - 0.01 K/cumm [facility] [place]) Blood 12/07/2024 12:0 3 AM CDT 12/07/2024 12:10 AM CDT Juan Antonio Alicea MD LAB BLOOD ORDERABLES Final R esult [facility] [place] [address] * ABO/Rh (12/07/2024 12:03 AM CDT) ABO/Rh B Positive Blood 12/07/2024 12:0 3 AM CDT 12/07/2024 12:10 AM CDT Narrative [facility] - 12/07/2024 2:05 AM CDT Has the patient had Daratumumab or Isatuximab in the past 6 months?->Unknown Juan Antonio Alicea MD LAB BLOOD BANK TEST ORDERABL ES Final Result Performing Organization Address [facility] Co de Phone Number [facility] ([place] [address] [facility] [place] [address] * Antibody screen (12/07/2024 12:03 AM CDT) Melia, indirect, Gel Interpretation Negative ABSC Blood 12/07/2024 12:0 3 AM CDT 12/07/2024 12:10 AM CDT Narrative [facility] ([place] - 12/07/2024 2:05 AM CDT Has the patient had Daratumumab or Isatuximab in the past 6 months?->Unknown Juan Antonio Alicea MD LAB BLOOD BANK TEST ORDERABL ES Final Result Performing Organization Address City/[facility]/ZIP Co de Phone Number [facility] ([place] [address] [facility] [place] [address] * (ABNORMAL) Comprehensive metabolic panel (12/07/2024 12:03 AM CDT) Sodium 143 135 - 145 mmol/L [facility] ([place]) Potassium, pl 4.0 3.3 - 4.9 mmol/L [facility] Chloride 105 97 - 110 mmol/L [facility] CO2 23 22 - 32 mmol/L [facility] Anion gap 15 2 - 15 mmol/L [facility] BUN 18 6 - 25 mg/dL [facility] Creatinine 1.13 0.80 - 1.30 mg/dL [facility] Glucose 83 70 - 199 mg/dL [facility] Comment: Interpretive Data Fasting glucose >/= 126 mg/dl is diagnostic for diabetes. Fasting is defined as no caloric intake for at least 8 hours. Fasting glucose between 100 mg/dl to 125 mg/dl is diagnostic of prediabetes. In a patient with classic symptoms of hyperglycemia or hyperglycemic crisis, a random glucose >/= 200 mg/dl is diagnostic for diabetes. In the absence of unequivocal hyperglycemia, results should be confirmed by repeat testing. The classification and Diagnosis of Diabetes Diabetes Care 2021; 46: S19-S40. Current interpretive data was last revised 2022. Calcium 9.4 8.5 - 10.3 mg/dL [facility] Bilirubin, total 0.3 0.1 - 1.2 mg/dL [facility]) Protein, pl 6.0(L) 6.5 - 8.5 g/dL [facility]) Albumin 4.2 3.5 - 5.0 g/dL [facility] Alk phos 100 40 - 130 Units/L [facility] ALT 28 7 - 55 Units/L [facility] AST 25 10 - 50 Units/L [facility] Comment:Hemolysis present. R esults may be affected. Blood 12/07/2024 12:0 3 AM CDT 12/07/2024 12:10 AM CDT Juan Antonio Alicea MD LAB BLOOD ORDERABLES Final R esult [facility] ([place] 1 [facility] Department [place] [address] * CT chest abdomen pelvis with contrast (10/16/2024 9:35 AM CDT) Anatomical Region Laterality Modality Body N/A Computed Tomogra phy 10/16/2024 12:0 3 PM CDT Impressions 10/16/2024 12:04 PM CDT Unchanged prominent mediastinal lymph nodes and mild splenomegaly. No evidence of disease progression in the chest, abdomen, or pelvis. Dictated by: Raquel Sweet MD PHD The radiology attending physician has personally reviewed this study, and had reviewed and/or edited this written report and agrees with it. Electronically signed by: Nikki Goldberg M.D. Narrative 10/16/2024 12:04 PM CDT EXAMINATION: Computed tomography of the chest, abdomen and pelvis with intravenous contrast HISTORY: Follicular lymphoma, off therapy since 2018. Fatigue and weakness with new palpable abnormality below the ribs. TECHNIQUE: Transaxial computed tomographic images of the chest, abdomen and pelvis were obtained with intravenous contrast according to the standard protocol after the uneventful administration of 69 mL Opti-Ray 350 intravenous contrast. COMPARISON: 07/03/2024 FINDINGS: There is upper lobe predominant emphysema. Calcified granuloma in the right lower lobe. Stable right infrahilar scarring and round atelectasis in the right lung base. No suspicious pulmonary nodule. No pleural effusion or pneumothorax. Stable prominent mediastinal lymph nodes including a right paraesophageal lymph node measuring 1.3 cm along the short axis, series 2 image 79. No axillary or supraclavicular lymphadenopathy. Thoracic aorta and main pulmonary artery are normal in caliber. Heart is normal in size. There are coronary artery calcifications. No pericardial effusion. Unchanged subcentimeter lesion in hepatic segment 2 likely represents a cyst or hemangioma. Gallbladder, pancreas, adrenal glands are normal. The spleen is enlarged up to 14 cm, unchanged from prior. Kidneys enhance symmetrically without hydronephrosis. Simple cyst in the left kidney. Urinary bladder is normal. Prostate is surgically absent. There is a penile implant. Stomach and duodenum are normal. Small bowel and colon are normal in caliber. There is colonic diverticulosis. Normal appendix. No ascites or pneumoperitoneum. 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 No abdominal or pelvic lymphadenopathy. Normal caliber abdominal aorta. Retrolisthesis of L4 on L5 and anterolisthesis of L5 on S1 with bilateral L5-S1 pars defects. No suspicious osseous lesion. Procedure Note Nikki Goldberg MD - 10/16/2024 EXAMINATION: Computed tomography of the chest, abdomen and pelvis with intravenous contrast HISTORY: Follicular lymphoma, off therapy since 2018. Fatigue and weakness with new palpable abnormality below the ribs. TECHNIQUE: Transaxial computed tomographic images of the chest, abdomen and pelvis were obtained with intravenous contrast according to the standard protocol after the uneventful administration of 69 mL Opti-Ray 350 intravenous contrast. COMPARISON: 07/03/2024 FINDINGS: There is upper lobe predominant emphysema. Calcified granuloma in the right lower lobe. Stable right infrahilar scarring and round atelectasis in the right lung base. No suspicious pulmonary nodule. No pleural effusion or pneumothorax. Stable prominent mediastinal lymph nodes including a right paraesophageal lymph node measuring 1.3 cm along the short axis, series 2 image 79. No axillary or supraclavicular lymphadenopathy. Thoracic aorta and main pulmonary artery are normal in caliber. Heart is normal in size. There are coronary artery calcifications. No pericardial effusion. Unchanged subcentimeter lesion in hepatic segment 2 likely represents a cyst or hemangioma. Gallbladder, pancreas, adrenal glands are normal. The spleen is enlarged up to 14 cm, unchanged from prior. Kidneys enhance symmetrically without hydronephrosis. Simple cyst in the left kidney. Urinary bladder is normal. Prostate is surgically absent. There is a penile implant. Stomach and duodenum are normal. Small bowel and colon are normal in caliber. There is colonic diverticulosis. Normal appendix. No ascites or pneumoperitoneum. 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 No abdominal or pelvic lymphadenopathy. Normal caliber abdominal aorta. Retrolisthesis of L4 on L5 and anterolisthesis of L5 on S1 with bilateral L5-S1 pars defects. No suspicious osseous lesion. IMPRESSION: Unchanged prominent mediastinal lymph nodes and mild splenomegaly. No evidence of disease progression in the chest, abdomen, or pelvis. Dictated by: Raquel Sweet MD PHD The radiology attending physician has personally reviewed this study, and had reviewed and/or edited this written report and agrees with it. Electronically signed by: Nikki Goldberg M.D. Sara Oconnell NP [facility] CT PROCEDU RES Final Result * COLONOSCOPY (12/10/2019 10:10 AM CDT) Anatomical Region Laterality Modality Other Narrative Procedure Note Cb Desai MD - 12/10/2019 10:10 AM CDT [facility] Patient Name: Aaron Grant Procedure Date: 12/10/2019 10:10 AM Date of : 1950 Admit Type: Outpatient Age: 69 Gender: Male Attending MD: Cb Desai M.D. Room: [facility] ENDOSCOPY ROOM 2 Note Status: Finalized Patient Profile: Refer to note in patient chart for documentation of history and physical. Procedure: Colonoscopy Indications: High risk colon cancer surveillance: Personalhistory of colonic polyps, Last colonoscopy: September 2011 Referring MD: Paulino Tate M.D. Providers: Cb Desai M.D. Impression: - Hemorrhoids found on perianal exam. - Diverticulosis in the sigmoid colon. - The examination was otherwise normal. - No specimens collected. Recommendation: - Discharge patient to home. - Resume previous diet. - Continue present medications. - Repeat colonoscopy in 5 years for surveillance. - Return to primary care physician as previously scheduled. Medicines: Propofol per Anesthesia Complications: No immediate complications. Estimated Blood Loss: Estimated blood loss: none. Procedure: Pre-Anesthesia Assessment: - This assessment was completed [Time of Assessment] prior to the administration of sedation. The benefits, risks and alternatives of theprocedure and sedation were discussed and informed consent was obtained. All questions were answered. Please referto the signed informed consent document in the medical record. The scope was passed under direct vision.The Colonoscope [id number] was introducedthrough the anus and advanced to the the cecum, identifiedby appendiceal orifice and ileocecal valve. Bowel prepwas administered using a single dose. The bowelpreparation used was Miralax. The bowel preparation used was bisacodyl tablets. The colonoscopy was performed without difficulty. The patient tolerated theprocedure well. The quality of the bowel preparation wasadequate to identify polyps 6 mm and larger in size. Findings: Hemorrhoids were found on perianal exam. Multiple small and large-mouthed diverticula were found in thesigmoid colon. The exam was otherwise without abnormality. Electronically signed by Cb Desai M.D. Cb Desai M.D. 12/10/2019 10:48:37 AM Number of Addenda: 0 Note Initiated On: 12/10/2019 10:10 AM Procedure Code(s): --- Professional --- G0105, Colorectal cancer screening; colonoscopy on individual at high risk Diagnosis Code(s): --- Professional --- K57.30, Diverticulosis of large intestine without perforation orabscess without bleeding Z86.010, Personal history of colonic polyps K64.9, Unspecified hemorrhoids CPT copyright 2017 [employer]. All rights reserved. The codes documented in this report are preliminary and upon embedded processor reviewmay be revised to meet current compliance requirements. Recognized by the [employer] for promoting quality in endoscopy us Cb Desai MD ENDOSCOPY PROCEDURES Final Re sult * Hepatitis C antibody (08/24/2017 11:35 AM CDT) Hep C Ab Nonreactive Nonreactive [facility] Comment: Interpretive Data Positive and greyzone results should be confirmed by a molecular method. If positive or greyzone, a second separately collected sample should be submitted for Hepatitis C Virus RNA. Detection and Quantitation by Real-Time Reverse Assembling Inspector-PCR.Current Interpretive data was last revised on 2016. Blood specimen (specimen) 08/24/2017 11:35 AM CDT 08/24/2017 11:49 AM CDT Narrative [facility] - 08/24/2017 1:50 PM CDT us Dg Shaw MD LAB MICROBIOLOGY - GENERAL O RDERABLES Edited Result - Final [facility] [place] [address] from Last 3 Months or Most Recently Relevant to Health Maintenance Insurance [facility] MEDICARE [facility] AETNA MEDICARE GOLD AETNA MEDICARE GOLD Advance Directives For more information, please contact: [phone] * Full Code (Latest Code Status on File) Date Activated Date Inactivated Comments 07/18/2022 11:57 AM 07/19/2022 2:41 PM * Full Code Date Activated Date Inactivated Comments 06/12/2020 11:40 PM 06/15/2020 8:49 PM * LIMITED - No CPR Date Activated Date Inactivated Comments 05/22/2020 10:51 PM 05/29/2020 6:37 PM * Full Code Date Activated Date Inactivated Comments 05/22/2020 1:58 PM 05/22/2020 10:50 PM * Full Code Date Activated Date Inactivated Comments 12/10/2019 10:03 AM 12/10/2019 3:41 PM Care Teams Grey Percher Relationship Specialty Start Date End Date Paulino Tate MD [address] [place] [address] PCP - General Internal Medicine 05/20/19 Dg Shaw MD [address] [facility] [address] [place] [address] Medical Oncologist/Life Insurance Salesperson Medical Oncology 05/05/20 Sendy Shrestha MD [address] [facility] [address] [place] [address] Consulting Physician Cardiology 05/29/20 [place] [id number] [facility] [address] [place] [address] Consulting Physician Urology 07/19/22
--- OUTSIDE RECORDS SUMMARY | 2025-03-02 08:27 | XMS_ITS ---
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, initial encounter 07/18/2022 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 Overview (06/02/2022): Added automatically from request for surgery [id number] Right hydrocele 06/02/2022 Overview (06/02/2022): Added automatically from request for surgery [id number] ASNHL (asymmetrical sensorineural hearing loss) 04/06/2022 Assessment & Plan (05/18/2022 8:37 PM CDT): MRI clear - medically cleared, may proceed with at least right sided hearing aid Assessment & Plan (04/06/2022 10:52 AM MEDICAL OFFICE ASSISTANT): Please proceed with MRI scan Budesonide sinus rinses twice daily, just add ampule to sinus rinse mixture shake and rinse Culture taken today, start new oral antibiotics based on these findings Chronic maxillary sinusitis 03/11/2022 Assessment & Plan (07/11/2022 3:12 PM CDT): Nasal saline spray (Simply saline, [employer], [place], [place]) 2 second sprays or 2 squeezes into [...] bedtime Assessment & Plan (04/06/2022 10:51 AM MEDICAL OFFICE ASSISTANT): Please proceed with MRI scan Budesonide sinus rinses twice daily, just add ampule to sinus rinse mixture shake and rinse Culture taken today, start new oral antibiotics based on these findings Assessment & Plan (03/11/2022 2:47 PM MEDICAL OFFICE ASSISTANT): Continue Sinus Rinse twice daily Hearing test with [facility] for Sudden hearing loss [facility] [phone] [place] [id number] Doxycycline twice daily for [address] sinus in 3-4 weeks, please have face covering completely off face for imaging Sudden right hearing loss 03/11/2022 Assessment & Plan (03/11/2022 2:47 PM MEDICAL OFFICE ASSISTANT): Continue Sinus Rinse twice daily Hearing test with [facility] for Sudden hearing loss [facility] [phone] [facility] [place] [address] Doxycycline twice daily for [address] sinus in 3-4 weeks, please have face covering completely off face for imaging Erectile dysfunction 01/06/2022 Urinary urgency 04/15/2021 Hematuria 04/15/2021 Microscopic hematuria 04/15/2021 Overview (04/15/2021): Added automatically from request for surgery [id number] Epididymal cyst 04/15/2021 Overview (04/15/2021): Added automatically from request for surgery [id number] Sensorineural hearing loss (SNHL) of both ears 0 03/26/2021 Assessment & Plan (03/26/2021 11:58 AM MEDICAL OFFICE ASSISTANT): Hearing test - [facility] Impacted cerumen of left ear 03/26/2021 Assessment & Plan (03/26/2021 11:58 AM MEDICAL OFFICE ASSISTANT): Avoid ear cleaning techniques Avoid water to ears Non-seasonal allergic rhinitis due to pollen Assessment & Plan (03/26/2021 11:58 AM MEDICAL OFFICE ASSISTANT): Increase Sinus Rinse and Flonase 2 sprays into each nostril while looking down over the sink, do not sniff in or blow nose after use for at least 30 minutes to twice daily Continue Xyzal every day History of COVID-19 06/12/2020 Assessment & Plan (06/12/2020 9:05 PM CDT): Reportedly COVID positive on 05/22, during [facility] admission 05/22-05/29 >20 days since first positive test: can likely be considered COVID recovered However, given persistent CT findings of viral pna and SOB (but likely due to PE), will keep on COVID precautions for now - Tele w/ pulse ox, supportive care - Will obtain record of first COVID positive test from [place] Pulmonary embolism 06/12/2020 Assessment & Plan (06/12/2020 [...] an appointment on June [address] Shrsetha to establish care. 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 Outpatient follow up with Onc Assessment & Plan (11/22/2018 2:29 PM CDT): Currently in remission.Followed by [facility] Essential tremor 12/04/2014 [...] (08/11/2016 9:19 AM CDT): Will draw psa Current Treatment and Therapy Plans No current plan information found. Past Treatment and Therapy Plans Oncology Chemotherapy Treatment Plan Name Start Date Discontinue Date Treatment Medications Discontinue Reason Plan Provider Cycles [facility] - Lymphoma - Induction - [place] Dose Expansion - Obinutuzumab / Polatuzumab / Lenalidomide 09/07/2017 03/22/2018 INV-[facility] ([place] [id number]) obinutuzumab IVPB in 250 mLINV-[facility] ([place] [id number]) polatuzumab IVPBINV-[facility] lenalidomide (/[place] [id number])INV-[facility] obinutuzumab ([place] [address]) Therapy Complete Dg Shaw MD 6 of 6 cycles started Oncology Supportive Care Therapy Plan Plan Name Start Date Discontinue Date Treatment Medications Discontinue Reason Plan Provider IV MAINTENANCE THERAPY PLAN 10/04/2017 09/12/2018 No medications scheduled. Therapy Complete Dg Shaw MD Oncology Treatment (2) Plan Name Start Date Discontinue Date Treatment Medications Discontinue Reason Plan Provider Cycles [facility] - Lymphoma - Maintenance - [place] Dose Expansion - Obinutuzumab / Polatuzumab / Lenalidomide 9 05/09/2018 INV-[facility] lenalidomide (/G [id number])INV-[facility] obinutuzumab (/G [id number]) Toxicity/Comp lication Dg Shaw MD Treatment not started Lifetime Dose Tracking * Chemical Lifetime Dose Automatic Entry Manual Entr y Fluoro Time 0.1 minutes 0.1 minutes 0 minutes Air kerma at the reference point (Ka,r) 11.4 mGy 1 1.4 mGy 0 mGy DLP 25,354 mGycm 25,354 mGycm 0 mGycm
[2025-03-02 08:32] VITALS: BP 125/72; PULSE 76; RESP 16; TEMP 36.9; O2SAT 98
--- NOTE | 2025-03-02 09:32 | ED_ITS ---
HPI - URI/Sore Throat General Chief Complaint: Upper Respiratory Infection Stated Complaint: sinus/chest congestion Time Seen by Provider: 03/02/25 09:15 Source: patient and RN notes reviewed Mode of arrival: ambulatory Limitations: no limitations History of Present Illness HPI Narrative: 75-year-old male patient presents to the [facility] complaining of upper respiratory symptoms for approximately 2 weeks. Patient reports cough, congestion, mucopurulent nasal drainage. Patient's symptoms are improving as cough is getting worse. Patient reports a mucopurulent cough. Patient denies any fevers, body aches, chills, nausea vomiting, diarrhea, chest pain, breathing problems, or any other symptoms. Patient reports a history of lymphoma, has not been on chemotherapy for over a year. Related Data Home Medications ?Medication ?Instructions ?Recorded ?Confirmed ?Last Taken ?Type duloxetine 30 mg capsule,delayed mg PO 01/30/23 Unkno wn History release furosemide 40 mg tablet mg 01/30/23 Unknown History potassium chloride 20 mEq meq PO 01/30/23 Unknown His tory tablet,extended release metoprolol succinate 50 mg mg PO 03/02/25 Unknown His tory tablet,extended release 24 hr Allergies Allergy/AdvReac Type Severity Reaction Status Date / Time Penicillins Allergy Severe Swelling, Verified 03/02/25 08:48 Rash, SOB ciprofloxacin Allergy Unknown Unknown Verified 03/02/25 08:48 Review of Systems Review of Systems: CONSTITUTIONAL: Denies fever, chills, or sweats. EYES: Denies visual changes, redness, or discharge. ENT: Denies rhinorrhea, sore throat, or otalgia. Positive for congestion. CARDIOVASCULAR: Denies chest pain, palpitations, or edema. RESPIRATORY: Positive for cough. Negative for wheezing or Dyspnea. GASTROINTESTINAL: Denies abdominal pain, nausea, vomiting, or diarrhea. GENITOURINARY: Denies dysuria or hematuria. SKIN: Denies rash or itching. MUSCULOSKELETAL: Denies back pain, joint pain, or myalgia. NEUROLOGIC: Denies headache, numbness, or weakness. PSYCHIATRIC: Denies anxiety or depression. All other systems reviewed are negative, except as documented in HPI. PMFSH Comments At the time of my signature, I reviewed and agree with the nursing past medical, surgical, social, and family history. There is no relevant family history pertinent to the patient complaint. Exam Narrative: GENERAL: This is a well-nourished, well-developed adult, in no apparent distress. They are non ill-appearing, nontoxic appearing. HEAD: normocephalic, atraumatic. EYES: Sclera clear/white. Conjunctiva normal. Vision is grossly intact. Extraocular movements intact EARS: External ears normal, auditory canals clear and without drainage, TMs normal without perforation. Hearing grossly intact. NOSE: External nose normal with no obvious nasal discharge, nasal turbinates erythematous with exudate present., no rhinorrhea. THROAT: Mucous membranes moist, posterior pharynx erythematous. PND present. Uvula midline. NECK: Neck supple, non-tender without lymphadenopathy, masses or thyromegaly. CARDIOVASCULAR: Regular rate and rhythm without murmurs, gallops, or rubs. RESPIRATORY: Clear to auscultation. Breath sounds equal bilaterally. No wheezes, rales, or rhonchi. SKIN: warm, Dry, intact with no suspicious lesions or rash, good texture and turgor. NEURO: awake, alert, and oriented to person, place and time. There were no obvious focal neurologic abnormalities. EXTREMITIES: No joint tenderness, effusion, or edema noted. BACK: Nontender without deformity. Course Course Level of Care: Express Care Visit Vital Signs Vital signs: Vital Signs Temperature 98.4 F 03/02/25 08:32 Pulse Rate 76 03/02/25 08:32 Respiratory Rate 16 03/02/25 08:32 Blood Pressure 125/72 03/02/25 08:32 Pulse Oximetry 98 03/02/25 08:32 Oxygen Delivery Room Air 03/02/25 08:32 Temperature 98.4 F 03/02/25 08:32 Pulse Rate 76 03/02/25 08:32 Respiratory Rate 16 03/02/25 08:32 Blood Pressure 125/72 03/02/25 08:32 Pulse Oximetry 98 03/02/25 08:32 Oxygen Delivery Room Air 03/02/25 08:32 [facility] Narrative Medical decision making narrative: Given patient's length of symptoms likely has bacterial sinusitis. Will treat treat with doxycycline given allergy to penicillins. Discussed physical exam findings. Advised supportive measures and signs/symptoms to go to the ER. Pt is appropriate for outpt treatment and f/u. Differential Diagnosis Differential Diagnosis: Differential diagnostic considerations for upper respiratory infection include upper respiratory infection, croup, otitis media, sinusitis, viral infection, bronchitis, influenza, pharyngitis, strep, uvulitis. Critical Care Time Critical Care Time Critical Care Time: No Discharge Plan Discharge Clinical Impression: Sinusitis Qualifiers: Sinusitis location: unspecified location Chronicity: acute Recurrence: non- recurrent Qualified Code(s): J01.90 - Acute sinusitis, unspecified Patient Disposition: Home Condition: Stable Instructions: Antibiotic Form, Sinusitis (ED) Additional Instructions: Take the antibiotics as directed and complete the course even if you start to feel better. You may use a Neti pot saline rinse 3 times a day with lukewarm distilled water Continue to take Tylenol or Motrin as needed for pain or fevers. Use a humidifier or vaporizer at night. Drink plenty of water. 8-10 glasses per day. Use flonase 2 times per day for 5 days then as needed Take mucinex 2 times per day and be sure to take with 8oz of water. Follow up with Primary provider in 3-5 days Please go to the ER if he develops any difficulty breathing, chest pain, vomiting, worsening symptoms, or any other serious concerns Patient Language: French Prescriptions: New doxycycline monohydrate 100 mg capsule 100 mg PO BID 7 Days Qty: 14 0RF No Action metoprolol succinate 50 mg tablet extended release 24 hr PO furosemide 40 mg tablet duloxetine 30 mg capsule,delayed release(DR/EC) PO potassium chloride 20 mEq tablet extended release PO Follow-up/Referrals: Bebeto,Will Julien MD [Primary Care Provider] Time of Disposition: 09:31
== END 2025-03-02 09:36 | disposition home or self-care (01) ==
PROVIDERS: PCP Internal Medicine
DX: J01.90 Acute sinusitis, unspecified (principal)
CPT/HCPCS: 99213; G0463